=== PATIENT | male | born 1975 | race Caucasian/White ===

== ENCOUNTER 2025-06-07 06:52 | Emergency (ER) | payer BC, SELFPAY ==
[2025-06-07 06:55] VITALS: BP 131/93
--- NOTE | 2025-06-07 08:06 | ED.GENMED ---
History of Present Illness
General
Chief Complaint: Back Pain
Source: patient
Time Seen by Provider: 06/07/25 07:41
History of Present Illness
History of Present Illness:
49-year-old male with past medical history of chronic back pain presenting to the emergency department for evaluation of worsening back pain over the last few days noting that on Thursday he had an epidural within his cervical spine due to upper
back/neck pain but now noting the pain is lower in the thoracic spine, radiating into the left scapula and left shoulder area. Patient concern for possible bulging disc in his thoracic spine as he notes that he has known bulging disc within both
the cervical and lumbar regions. Patient follows with pain management physician, Dr. Yuval Rwoell, who performed the epidural on Thursday, he contacted the office to let them know that he was still having the same pain but fortunately the provider is
away for the next week at a conference. Patient does have a follow-up visit scheduled within 3 weeks but states he does not feel that he can last that long with the current pain that he is in. Pain is described to be mostly constant, worse with
movement especially of the left upper extremity, sharp stabbing as if someone were poking him with a hot pen within the left scapular region. Patient denies any focal weakness or numbness to the extremity. He has no other concerns at this time.
Past History
Past History
ED Past Medical History: None
ED Past Surgical History: Orthopedic
Social History
Tobacco: Non-smoker
Alcohol: None
Drug: None
Personal:
Living: with family
Review of Systems
Review of Systems
All Other Systems: ROS reviewed and negative except as documented in HPI and ROS
Phy Exam
Physical Exam
Physical Exam:
GENERAL: Alert , in no apparent distress at rest however does appear in pain with any attempted movement of the left upper extremity
HEAD: Normocephalic atraumatic
EYE: Clear conjunctiva
NECK: Supple, no midline tenderness
ENT: o/p clr, mmm.
NEUROLOGICAL: Alert and oriented, no focal neuro deficits, patient is able to range of motion bilateral upper extremities equally, intact sensation throughout the bilateral upper extremities, 2+ biceps, triceps and brachial radialis DTR bilateral.
5 out of 5 strength upper extremity bilateral
BACK: Tenderness within the upper thoracic spine with point tenderness at the level of T3
SKIN: Warm and dry, skin intact.
MUSCULOSKELETAL: No edema, well perfused.
PSYCH: Normal and appropriate interaction.
Scores
Heart Failure Risk
Heart Failure Risk Score: Not Applicable
Heart Score for Chest Pain Patients
STEMI patient?: Not applicable
Withdrawal Assessment of Alcohol
Withdrawal Assessment Completed?: Not applicable
Course
Vital Signs
Initial and Last Documented VS:
Initial Vital Signs
Temp Pulse Resp BP Pulse Ox
98.4 F 96 18 131/93 100
06/07/25 06:55 06/07/25 06:55 06/07/25 06:55 06/07/25 06:55 06/07/25 06:55
Last Documented Vital Signs
Temp Pulse Resp BP Pulse Ox
98.4 F 96 18 131/93 100
06/07/25 06:55 06/07/25 06:55 06/07/25 06:55 06/07/25 06:55 06/07/25 08:07
MDM/Problems Addressed
Differential Diagnosis Includes:
Radiculopathy
Disc herniation
Nerve impingement
Hematoma
Cord compression
Spinal stenosis
Less concern for an infectious etiology
Myelopathy
MDM/Problems Addressed:
49-year-old male presenting to the ER for evaluation of increasing pain to the upper thoracic area, status post cervical spine epidural from 2 days ago without much relief. No fevers or infectious symptoms, no focal neurologic deficits. Clinical
concern for emergent pathology is low however patient does appear quite uncomfortable. Does not wish to take any opiate based medication. He did recently complete a steroid taper from the pain management office so will avoid prescribing this again
as patient noted no relief. He has muscle relaxants at home. Will trial gabapentin for pain relief. I did provide the patient with a prescription for outpatient MRI. I also contacted patient's pain management office and notified the office staff
of patient's visit to the ER today in hopes to expedite his outpatient visit as well as see if there is anything else that can be provided to him until his physician returns to the office.
*Pulse Oximetry
SaO2: 100
Oxygen Mode of Delivery: Room air
Patient hypoxic: no
*Critical Care Note
Total Time (30-74mins, 75-104mins- exclusive of procedures): Not Applicable
Data Reviewed
Review of Other/Old Records Reveals: Radiology Studies (MRI of the lumbar spine showing disc herniation at L2-L3 and L4-L5)
Source: patient and spouse
ED Attending Note
-
Portions of this chart may have been created with voice recognition software.� Occasional wrong word or��sound alike� substitutions may have occurred due to the inherent limitations of voice recognition software.
Discharge Plan
Departure
Patient Disposition: Home (Routine Discharge)
Date of Disposition: 06/07/25
Time of Disposition: 08:07
Patient with high blood pressure during this ER visit?: Yes
Discharge Problem:
Radiculopathy affecting upper extremity
Instructions: Radiculopathy (DC)
Prescriptions:
New
gabapentin [Neurontin] 300 mg capsule
300 mg PO BID Qty: 15 0RF
No Action
buspirone 5 mg Tablet
5 mg PO TID
meloxicam 15 mg Tablet
15 mg PO DAILY
Claritin-D 24 Hour 10-240 mg Tablet Extended Release 24 Hr
1 tab PO DAILY
[place] 6 Fatty Acid
1 cap PO DAILY
vitamin E
1 cap PO DAILY
mupirocin 2 % Ointment
1 applic TOPICAL BID
Referrals:
Roxanne Michele MD [Family Provider, Family Practice]
Interventions
Interventions:
*Risk Screen - Suicide Last Done: 06/07/25 06:55
*General Assessment Last Done: 06/07/25 06:55
*Neglect/Abuse Screening Last Done: 06/07/25 06:55
*ED- Fall Risk Assessment Last Done: 06/07/25 08:19
*ED COVID-19 Vaccine History Last Done: 06/07/25 08:18
*ED Influenza Vaccine History Last Done: 06/07/25 08:18
*Nursing Disposition Last Done: 06/07/25 08:21
ED-Musculoskeletal Assessment Last Done: 06/07/25 08:19
Discharge Date and Time
Print Language: VENEZUELAN
== END 2025-06-07 08:37 | disposition home or self-care (01) ==
LOC: EMR 06:52
PROVIDERS: EMERGENCY PHYSICIAN Emergency Medicine; FAMILY PHYSICIAN Family Medicine
DX: M54.10 Radiculopathy, site unspecified (principal); M54.6 Pain in thoracic spine; G89.29 Other chronic pain
CPT/HCPCS: 99283

== ENCOUNTER → 2025-06-21 19:46 | Outpatient (REF) | payer BC, SELFPAY | LOC: PAVMRI 19:46 | PROVIDERS: ATTENDING PHYSICIAN Physician Assistant; FAMILY PHYSICIAN Family Medicine | DX: M54.14 Radiculopathy, thoracic region (principal) | CPT/HCPCS: 72146 ==

== ENCOUNTER 2025-06-30 06:34 | Day surgery (SDC) | payer BC, SELFPAY | END 2025-06-30 12:37 | disposition home or self-care (01) | LOC: GI 06:34 | PROVIDERS: ATTENDING PHYSICIAN Internal Medicine Gastroenterology | DX: Z12.11 Encounter for screening for malignant neoplasm of colon (principal); K64.8 Other hemorrhoids; K57.30 Diverticulosis of large intestine without perforation or abscess without bleeding; D12.0 Benign neoplasm of cecum; K63.5 Polyp of colon | CPT/HCPCS: 45385; 45380; 88305 ==